=== PATIENT | male | born 1990 | race Caucasian/White ===

== ENCOUNTER 2018-10-02 17:11 | Emergency (ER) | payer OTHER ==
[2018-10-02 17:33] VITALS: BP 116/76; PULSE 65; TEMP 98.3; BMI 26.4
[2018-10-02] MEDS ORDERED: DIPHTH,PERTUSS(ACELL),TET 0.5 ML DISP.SYRIN IM ONE ×2 (17:33→18:00)
--- NOTE | 2018-10-02 17:34 | PDOC ---
Rapid Medical Evaluation Chief Complaint: Blood/Body Fluid Exposure SJR Time Seen by Provider: 10/02/18 17:29 Medical Evaluation: 10/02/18 17:29 Pt comes in for exposure to a suspects blood. Pt is from [facility]. States that the suspect he was chasing was bleeding. He got blood on his hands (open cut on R) and may have gotten some blood in his eyes. Exposure happened approx 30minutes ago Exam: Appears well, NAD. Open cut (scabbed to R hand) Orders: Labs Pt to proceed to ED for further evaluation Discharge Disposition - Diagnosis Exposure to blood - Referrals - Patient Instructions
--- NOTE | 2018-10-02 18:09 | PDOC ---
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 Patient report he saw blood on his hat and does not know if blood went into his eyes but does not feel anything went into his eyes. Patient report he has small abrasion to back of right hand which he is not sure if blood went into the wound. Patient report hand abrasion happened 2 days ago and healing. Patient does not recall last tetanus vaccine. Denies any other symptoms Timing: just prior to arrival Exposed Location: Right: Hand(s) (over area of abrasion), Bilateral: Eye(s) ( unsure) Past History - Past Medical History Allergies/Adverse Reactions: Allergies Allergy/AdvReac Type Severity Reaction Status Date / Time No Known Allergies Allergy Verified 10/02/18 17:30 Home Medications: Ambulatory Orders NK [No Known Home Medication] 10/02/18 COPD: No - Suicide/Smoking/Psychosocial Hx Smoking History: Never smoked Hx Alcohol Use: No Drug/Substance Use Hx: No Review of Systems - Review of Systems Able to Perform ROS?: Yes Is the patient limited Dutch proficient: No Constitutional: No: Malaise HEENTM: No: Eye Pain, Blurred Vision, Tearing, Recent change in vision, Double Vision Respiratory: No: Symptoms reported Cardiac (ROS): No: Symptoms Reported ABD/GI: No: Symptoms Reported Integumentary: Yes: Other (well healing linear abrasion to back of right hand) All Other Systems: Reviewed and Negative *Physical Exam - Vital Signs Last Vital Signs Temp Pulse Resp BP Pulse Ox 98.3 F 65 16 116/76 99 10/02/18 17:30 10/02/18 17:30 10/02/18 17:30 10/02/18 17:30 10/02/18 17:30 - Physical Exam Comments: 10/02/18 18:10 GENERAL: Well developed, well nourished. Awake and alert. No acute distress. HEENT: Normocephalic, atraumatic. PERRLA, EOMI. No conjunctival pallor. Sclera are non-icteric. Moist mucous membranes. Oropharynx is clear. NECK: Supple. Full ROM. CARDIOVASCULAR: Regular rate and rhythm. No murmurs, rubs, or gallops. Distal pulses are 2+ and symmetric. PULMONARY: No evidence of respiratory distress. Lungs clear to auscultation bilaterally. No wheezing, rales or rhonchi. ABDOMINAL: Soft. Non-tender. Non-distended. No rebound or guarding. No organomegaly. Normoactive bowel sounds. MUSCULOSKELETAL Normal range of motion at all joints. EXTREMITIES: No cyanosis. No clubbing. No edema. SKIN: well healing 1cm linear superficial abrasion to dorsal aspect of right hand. Warm and dry. Normal capillary refill. NEUROLOGICAL: Alert, awake, appropriate. Gait is normal without ataxia. PSYCHIATRIC: Cooperative. Good eye contact. Appropriate mood General Appearance: Yes: Nourished, Appropriately Dressed. 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 No visible blood products on patient's skin. Normal ophthalmic exam. Bilateral eyes irrigated eyewash station. Postexposure lab reported. Prep medication for HIV not warranted at this time due to low risk of infection as patient now as pt unsure of blood products or into her eye or wound. 10/02/18 19:11 Postexposure lab negative. Patient is stable for discharge to follow-up with the patient PCP in 4 weeks for repeat blood work. *DC/Admit/Observation/Transfer Diagnosis at time of Disposition: Exposure to blood - Discharge Dispostion Disposition: HOME Condition at time of disposition: Stable Decision to Admit order: No - Referrals Referrals: Daniele Mujica MD [Primary Care Provider] - - Patient Instructions Printed Discharge Instructions: How to Handle Body Fluid Exposure -- Non- Healthcare Worker (At Home, [facility]gi Additional Instructions: apply neospirin twice/day to wound to back of hand. come back to ED if any new symptoms - Post Discharge Activity Forms/Work/School Notes: Back to Work
[2018-10-02 18:16] LABS: BASO % 0.4 % (0-2.0); EOS % 0.8 % (0-4.5); HEMATOCRIT 45.4 % (35.4-49); HEMOGLOBIN 15.7 GM/dL (11.7-16.9); LYMPH % 29.6 % (8-40); MCH 30.9 pg (25.7-33.7); MCHC 34.6 g/dl (32.0-35.9); MEAN CELL VOLUME 89.4 fl (80-96); MEAN PLT VOLUME 8.6 fl (7.5-11.1); MONO % 8.5 % (3.8-10.2); NEUT % 60.7 % (42.8-82.8); PLATELET COUNT 261 K/MM3 (134-434); RBC 5.07 M/mm3 (4.00-5.60); RDW 12.9 % (11.9-15.9); WHITE BLOOD COUNT 8.2 K/mm3 (4.0-10.0)
[2018-10-02 18:40] LABS: ALBUMIN 4.6 g/dl (3.4-5.0); ALK PHOS 65 U/L (45-117); ANION GAP 10 MMOL/L (8-16); BILIRUBIN,TOTAL 2.5 mg/dL (0.2-1); BLOOD UREA NITROGEN 19 mg/dL (7-18); CHLORIDE 100 mmol/L (98-107); CO2 27 mmol/L (21-32); CREATININE 0.9 mg/dL (0.55-1.3); GLUCOSE,RANDOM 72 mg/dL (74-106); POTASSIUM 3.6 mmol/L (3.5-5.1); SGOT/AST 64 U/L (15-37); SGPT/ALT 41 U/L (13-61); SODIUM 138 mmol/L (136-145); TOT PROT 7.4 g/dl (6.4-8.2)
[2018-10-04 03:16] LABS: HBsAG SCREEN Negative (Negative)
== END 2018-10-02 19:12 | disposition home or self-care (01) ==
LOC: JERFT 17:11
PROC: 3E0234Z Introduction of Serum, Toxoid and Vaccine into Muscle, Percutaneous Approach (ICD-10-PCS; principal; 2018-10-02)
DX: Z77.21 Contact with and (suspected) exposure to potentially hazardous body fluids (principal); Y35.891A Legal intervention involving other specified means, law enforcement official injured, initial encounter; Y93.89 Activity, other specified; Y92.89 Other specified places as the place of occurrence of the external cause; Y99.0 Civilian activity done for income or pay
CPT/HCPCS: 36415; 80053; 85025; 86317; 86706; 86803; 87340; 87389; 90715; 99282-25